=== PATIENT | male | born 1985 | race Caucasian/White ===

== ENCOUNTER 2018-02-03 11:17 | Day surgery (SDC) | payer OTHER ==
[~2018-02-03 11:17] MED LIST: METOCLOPRAMIDE 10 MG INJ; ONDANSETRON 4 MG INJ
[2018-02-03] MEDS: SOD CHLORIDE 0.9% 1,000 ML IV (12:57)
[2018-02-03] MEDS ORDERED: FENTAnyl 50 MCG/ML VIAL (14:02)
[2018-02-03] MEDS ORDERED: MIDAZOLAM 1 MG/ML 2 ML INJ (14:02)
[2018-02-03] MEDS ORDERED: PROPOFOL 20 ML (14:03)
[2018-02-03] MEDS ORDERED: LIDOCAINE 2% (SDV) 5 ML INJ (14:03)
[2018-02-03] MEDS ORDERED: SUCCINYLCHOLINE CHLORIDE 100 MG/5 ML SYG IV (14:04)
[2018-02-03] MEDS ORDERED: DEXAMETHASONE 4 MG/ML 1 ML INJ (14:05)
[2018-02-03] MEDS ORDERED: ROPIVACAINE 0.5 % 30 ML VIAL (14:41)
[2018-02-03] MEDS ORDERED: BUPIVACAINE 0.25%/EPI (SDV) 30 ML INJ (15:16)
[2018-02-03] MEDS ORDERED: LIDOCAINE 2% (MDV) 20 ML INJ (15:16)
[2018-02-03] MEDS ORDERED: BUPIVACAINE 0.5% (SDV) 30 ML INJ (15:16)
[2018-02-03] MEDS ORDERED: BUPIVACAINE 0.25% (MPF) 30 ML INJ (15:29)
[2018-02-03] MEDS ORDERED: ONDANSETRON 4 MG INJ IV (15:30)
[2018-02-03] MEDS ORDERED: MEPERIDINE 25 MG INJ IV (15:30)
[2018-02-03] MEDS ORDERED: KETOROLAC 30 MG INJ IV (15:30)
[2018-02-03] MEDS: CEFAZOLIN 2 GM/50 ML (PMX) 50 ML IVPB (15:30)
[2018-02-03] MEDS ORDERED: HYDROmorphONE 1 MG/5 ML IV SYRINGE IV ×2 (15:30)
[2018-02-03] MEDS ORDERED: FENTAnyl 50 MCG/ML VIAL IV ×2 (15:30)
[2018-02-03] MEDS ORDERED: DIPHENHYDRAMINE 50 MG INJ IV (15:30)
[2018-02-03] MEDS ORDERED: HYDROCODONE/APAP (5/325) TAB PO (16:00)
[2018-02-03] MEDS: BUPIVACAINE 0.25% (MPF) 30 ML INJ INJ (16:05)
[2018-02-03] MEDS: LIDOCAINE 2% (MDV) 20 ML INJ INJ (16:05)
== END 2018-02-03 17:30 | disposition home or self-care (01) ==
LOC: SDS 11:17
DX: L72.0 Epidermal cyst (principal)
CPT/HCPCS: 14001; 88307